=== PATIENT | male | born 1935 | race Caucasian/White ===

== ENCOUNTER 2021-02-01 08:24 | Inpatient (IN) | payer MEDICARE ==
[2021-01-26 09:23] LABS: BASOPHILS # (AUTO) 0.1 X10'3 (0-0.2); EOSINOPHILS # (AUTO) 0.4 X10'3 (0-0.9); EOSINOPHILS % (AUTO) 6.7 % (0-6); HEMOGLOBIN 14.9 g/dl (14.0-17.9); LYMPHOCYTES # (AUTO) 1.2 X10'3 (1.1-4.8); LYMPHOCYTES % (AUTO) 19.3 % (21-51); MEAN CORPUSCULAR HEMOGLOBIN 31.7 PG (27.0-31.0); MEAN CORPUSCULAR HGB CONC 33.9 g/dL (33.0-36.5); MEAN CORPUSCULAR VOLUME 93.4 FL (78-98); MEAN PLATELET VOLUME 8.2 FL (7.4-10.4); MONOCYTES % (AUTO) 14.9 % (2-12); NEUTROPHILS # (AUTO) 3.7 X10'3 (1.8-7.7); NEUTROPHILS % (AUTO) 58.1 % (42-75); PLATELET COUNT 221 X10'3 (140-440); RED BLOOD COUNT 4.71 X10'6 (4.70-6.10); RED CELL DISTRIBUTION WIDTH 13.3 % (11.5-14.5); WHITE BLOOD COUNT 6.4 X10'3 (4.5-11.0)
[2021-01-26 09:49] LABS: ALANINE AMINOTRANSFERASE 26 U/L (12-78); ALBUMIN 3.3 G/DL (3.4-5.0); ALBUMIN/GLOBULIN RATIO 0.9 (1.1-1.5); ALKALINE PHOSPHATASE 91 IU/L (46-116); ANION GAP 5 (8-16); ASPARTATE AMINO TRANSFERASE 26 U/L (10-37); BILIRUBIN,TOTAL 0.6 MG/DL (0.1-1.0); BLOOD UREA NITROGEN 17 MG/DL (7-18); CALCIUM 8.3 MG/DL (8.5-10.1); CHLORIDE 107 MMOL/L (99-107); CREATININE 1.31 MG/DL (0.60-1.10); GLUCOSE 94 MG/DL (70-104); POTASSIUM 4.9 MMOL/L (3.5-5.1); SODIUM 141 MMOL/L (135-145); TOTAL CARBON DIOXIDE 28.8 MMOL/L (24-32); TOTAL PROTEIN 6.9 G/DL (6.4-8.2); eGFR 52 ML/MIN
[2021-01-26 13:57] LABS: PARTIAL THROMBOPLASTIN TIME 29 SECONDS (22-32)
[~2021-02-01] VITALS: Ht 172.7 cm; Wt 67.8 kg
[2021-02-01] VITALS (12 sets, daily range): BP systolic 94–188; BP diastolic 42–101
--- NOTE | 2021-02-01 05:53 | NUR ---
Patient in room PCU 3018. I have received report from Zahra and had the opportunity to ask questions and assume patient care.
[~2021-02-01 08:24] MED LIST: LIDOcaine 2% (20 mg/ml) 5ml cardiac syringe ONE; MAGNESIUM SULFATE 4 MEQ/ML (5gm/10ml) injection ONE; NORepinephrine 1 mg/ml inj IV ONE; albumin (human) 25% 100 ML IV solution IV ONE; aminocaproic acid 250 MG/1 ML inj. ONE; heparin 10,000 units/1 ML INJ ONE; methylPREDNISolone sod succ 1000mg vial ONE; potassium Cl 2 mEq/ml inj IV ONE; sodium bicarbonate (8.4%) 1 mEq/ml syringe ONE
[2021-02-01] MEDS ORDERED: diphenhydrAMINE 25mg capsule PO PRN (08:50)
[2021-02-01] MEDS ORDERED: LORazepam 0.5 MG tablet PO PRN (08:50)
[2021-02-01] MEDS ORDERED: nitroGLYCERIN 0.4mg SUBLingual tab SL PRN (08:50)
[2021-02-01] MEDS ORDERED: ASPI-1265 PO (08:55)
[2021-02-01] MEDS ORDERED: MULT-1085 PO (08:55)
[2021-02-01] MEDS: normal saline 1,000 ML IV SCH (09:39)
[2021-02-01] MEDS ORDERED: LIDOcaine 1% (10mg/ml)w/preservative injection 20ml MDV ONE (10:37)
[2021-02-01] MEDS ORDERED: iohexol 350MG/ML 100ml bottle IV ONE (10:37)
[2021-02-01] MEDS ORDERED: iohexol 350 MG/ML 50ML vial IV ONE ×2 (10:37→11:13)
[2021-02-01] MEDS ORDERED: fentaNYL/PF 50MCG/1 ML 2ML syringe ONE (10:37)
[2021-02-01] MEDS ORDERED: midazolam 1 mg/ML 2ml injection ONE (10:37)
[2021-02-01] MEDS ORDERED: hydrALAZINE 20mg/ml inj. IV ONE (11:11)
[2021-02-01] MEDS ORDERED: nitroGLYCERIN-Tridil 50MG/D5W 250 ML IV ONE (11:11)
[2021-02-01] MEDS ORDERED: HYDROcodone/acetaminophen 10/325mg tab PO PRN (12:35)
[2021-02-01] MEDS: normal saline 1000ml 1,000 ML IV SCH ×2 (12:35→22:35)
[2021-02-01] MEDS ORDERED: HYDROcodone/acetaminophen 5mg/325mg tablet PO PRN (12:35)
[2021-02-01] MEDS ORDERED: ondansetron/PF 4mg/2ml inj IV PRN (12:35)
[2021-02-01] MEDS ORDERED: OXAZEpam 15mg capsule PO PRN (12:35)
[2021-02-01] MEDS ORDERED: acetaminophen 325mg tablet PO PRN (12:35)
[2021-02-01] MEDS ORDERED: proCHLORperazine 10 MG/2 ml inj IV PRN (12:35)
[2021-02-01] MEDS ORDERED: gabapentin 400mg capsule PO ONE (16:15)
[2021-02-01] MEDS ORDERED: MALTODEXTRIN/FRUCTOSE 0.68 KCAL/ML LIQUID 296ML BOTTLE PO ONE (16:15)
[2021-02-01] MEDS ORDERED: PERFLUTREN PROTEIN-A MICROSPHR (Optison) 0.22 MG/ML 3ML VIAL IV ONE (16:15)
[2021-02-01] MEDS ORDERED: ondansetron 4mg rapidly disintigrating tab PO PRN (16:15)
[2021-02-01] MEDS ORDERED: vancomycin/NS 1 GM ADD-VANTAGE 250 ML IV ONE (16:15)
[2021-02-01] MEDS ORDERED: MESSAGE TO NURSING PO ONE ×4 (16:15)
[2021-02-01] MEDS ORDERED: cefazolin/dext.iso 2gm/50ml 50 ML IV ONE (16:15)
--- NOTE | 2021-02-01 17:31 | NUR ---
Problems reprioritized. Patient report given, questions answered & plan of care reviewed with RYAN Gambino in Tele, pt will be transported to room 3018B.
--- NOTE | 2021-02-01 17:35 | NUR ---
Patient in room . I have received report from Laura Francis and had the opportunity to ask questions and awaiting pt arrival to unit..
--- NOTE | 2021-02-01 17:40 | NUR ---
VSS, pt's R groin dsg CDI, pedal pulses palpable, pt is in stable condition and in no distress at this time, pt's RN Immanuel at pt's bedside and transferred all pt's belongings to room #3018B. Pt's daughter at bedside also.
--- NOTE | 2021-02-01 17:45 | NUR ---
Pt arrived on unit, started post op vital signs. Problems reprioritized. Patient report given, questions answered & plan of care reviewed with Patricia.
[2021-02-01] MEDS: atorvastatin 10mg tablet PO SCH (20:08)
[2021-02-01] MEDS: metoprolol tartrate 12.5mg (1/2 tablet) PO SCH (20:08)
[2021-02-02] MEDS: normal saline 1,000 ML IV SCH ×3 (01:05→14:50)
[2021-02-02 01:13] LABS: CLARITY,URINE CLEAR (Clear); COLOR,URINE YELLOW (Yellow); GLUCOSE, URINE NEGATIVE (Neg); KETONES,URINE TRACE mg/dl (Neg); LEUKOCYTE ESTERASE ,URINE NEGATIVE (Neg); NITRITES, URINE NEGATIVE (Neg); OCCULT BLOOD,URINE NEGATIVE (Neg); PROTEIN,URINE NEGATIVE (Neg); UROBILINOGEN,URINE 0.2 E.U/dL (0.2-1.0)
[2021-02-02 01:16] LABS: UA COLLECTION TYPE VOIDED
[2021-02-02 02:00] VITALS: BP 122/55
[2021-02-02 06:56] LABS: HEMOGLOBIN A1C 5.1 % (4.5-6.2)
[2021-02-02 07:05] LABS: PARTIAL THROMBOPLASTIN TIME 29 SECONDS (22-32)
[2021-02-02 07:10] VITALS: BP 127/55
[2021-02-02] MEDS: metoprolol tartrate 12.5mg (1/2 tablet) PO SCH ×2 (07:22→21:04)
[2021-02-02 07:30] LABS: ALANINE AMINOTRANSFERASE 17 U/L (12-78); ALBUMIN 2.8 G/DL (3.4-5.0); ALKALINE PHOSPHATASE 79 IU/L (46-116); ANION GAP 10 (8-16); ASPARTATE AMINO TRANSFERASE 20 U/L (10-37); BILIRUBIN,TOTAL 0.6 MG/DL (0.1-1.0); BLOOD UREA NITROGEN 17 MG/DL (7-18); BUN/CREATININE RATIO 14.3 (5.4-32.0); CALCIUM 7.9 MG/DL (8.5-10.1); CHLORIDE 110 MMOL/L (99-107); CREATININE 1.19 MG/DL (0.60-1.10); GLUCOSE 92 MG/DL (70-104); POTASSIUM 4.3 MMOL/L (3.5-5.1); SODIUM 143 MMOL/L (135-145); TOTAL PROTEIN 5.7 G/DL (6.4-8.2); eGFR 58 ML/MIN
[2021-02-02] MEDS: normal saline 1000ml 1,000 ML IV SCH ×2 (08:35→18:35)
[2021-02-02] MEDS ORDERED: MESSAGE TO NURSING PO ONE (10:00)
[2021-02-02] MEDS ORDERED: insulin glargine (Lantus) pen - multi-dose SQ PRN (10:30)
[2021-02-02] MEDS ORDERED: dextrose 50%-water 50ml dispensing syringe IV PRN (10:30)
[2021-02-02] MEDS ORDERED: Insulin Reg/NS 100units/100mL 100 ML IV SCH (10:30)
[2021-02-02 11:00] VITALS: BP 138/72
[2021-02-02 11:46] LABS: ABG BASE EXCESS 0.1 mmol/L (-2.0-2.0); ABG OXYGEN SATURATION 95.7 % (94-97); ABG PCO2 (T) 36.8 mmHg (35.0-48.0); ABG PO2 (T) 73.7 mmHg (75.0-100.0); ALLEN'S TEST POSITIVE; FCOHb 0.7 % (0.0-3.9); FMetHb 0.2 % (0.0-1.5); FO2Hb 94.8 % (94-97); TOTAL HEMOGLOBIN 14.5 G/dl (14.0-18.0)
[2021-02-02 14:22] LABS: BASOPHILS % (AUTO) 0.5 % (0-1); EOSINOPHILS # (AUTO) 0.5 X10'3 (0-0.9); EOSINOPHILS % (AUTO) 5.7 % (0-6); HEMATOCRIT 42.2 % (42.0-52.0); HEMOGLOBIN 14.1 g/dl (14.0-17.9); LYMPHOCYTES # (AUTO) 1.3 X10'3 (1.1-4.8); LYMPHOCYTES % (AUTO) 15.9 % (21-51); MEAN CORPUSCULAR HEMOGLOBIN 31.7 PG (27.0-31.0); MEAN CORPUSCULAR HGB CONC 33.4 g/dL (33.0-36.5); MEAN PLATELET VOLUME 8.1 FL (7.4-10.4); MONOCYTES # (AUTO) 1.3 X10'3 (0-0.9); MONOCYTES % (AUTO) 16.1 % (2-12); NEUTROPHILS # (AUTO) 5.1 X10'3 (1.8-7.7); NEUTROPHILS % (AUTO) 61.8 % (42-75); PLATELET COUNT 215 X10'3 (140-440); RED BLOOD COUNT 4.45 X10'6 (4.70-6.10); RED CELL DISTRIBUTION WIDTH 13.5 % (11.5-14.5); WHITE BLOOD COUNT 8.2 X10'3 (4.5-11.0)
[2021-02-02 15:00] VITALS: BP 116/65
[2021-02-02 15:26] LABS: PLATELET ESTIMATE NORMAL; TOTAL CELLS COUNTED 100
[2021-02-02 18:00] VITALS: BP 153/76
--- NOTE | 2021-02-02 18:17 | NUR ---
Patient in room PCU 3018. I have received report from Bushra DAVIS and had the opportunity to ask questions and assume patient care.
[2021-02-02] MEDS ORDERED: ringers solution, lacted 1,000 ML IV ONE (18:25)
--- NOTE | 2021-02-02 18:32 | NUR ---
Problems reprioritized. Patient report given, questions answered & plan of care reviewed with Bing DAVIS.
[2021-02-02] MEDS ORDERED: metoprolol tartrate 12.5mg (1/2 tablet) PO SCH (20:00)
[2021-02-02] MEDS ORDERED: mupirocin 2% nasal ointment 1gm UD NS SCH (20:00)
[2021-02-02] MEDS ORDERED: sod chloride 0.9% 10ml flush syringe IV SCH (20:00)
[2021-02-02] MEDS: atorvastatin 10mg tablet PO SCH (21:05)
[2021-02-02 23:00] VITALS: BP_SYST 182; BP_SYST 199; BP_DIAS 90
[2021-02-03] VITALS (20 sets, daily range): BP systolic 98–172; BP diastolic 53–130
[2021-02-03] MEDS: normal saline 1,000 ML IV SCH (00:50)
[2021-02-03] MEDS: normal saline 1000ml 1,000 ML IV SCH (04:35)
[2021-02-03] MEDS ORDERED: MALTODEXTRIN/FRUCTOSE 0.68 KCAL/ML LIQUID 296ML BOTTLE PO ONE (05:00)
[2021-02-03] MEDS ORDERED: ceFAZolin 1000mg inj ONE (05:11)
[2021-02-03] MEDS: metoprolol tartrate 12.5mg (1/2 tablet) PO SCH (05:18)
[2021-02-03] MEDS ORDERED: gabapentin 400mg capsule PO ONE (05:30)
[2021-02-03] MEDS ORDERED: cefazolin/dext.iso 2gm/50ml 50 ML IV ONE (05:30)
[2021-02-03] MEDS ORDERED: mupirocin 2% nasal ointment 1gm UD NS ONE (05:30)
[2021-02-03] MEDS ORDERED: vancomycin/NS 1 GM ADD-VANTAGE 250 ML IV ONE (05:30)
[2021-02-03] MEDS ORDERED: LORazepam 2 mg/ml vial IV ONE (06:00)
[2021-02-03] MEDS ORDERED: famotidine 20mg tablet PO ONE (06:00)
--- NOTE | 2021-02-03 06:42 | NUR ---
Patient in room PCU 3018. I have received report from RYAN Smart and had the opportunity to ask questions and assume patient care.
--- NOTE | 2021-02-03 06:52 | NUR ---
OR came for pt.
[2021-02-03] MEDS ORDERED: isoflurane 100ml inhalation liquid IH ONE (06:55)
[2021-02-03] MEDS ORDERED: dextrose 50%-water 50ml dispensing syringe IV ONE (06:55)
[2021-02-03] MEDS ORDERED: atropine 0.1mg/ml 10ml syringe ONE (06:55)
[2021-02-03] MEDS ORDERED: nitroGLYCERIN in D5W 50mg/250ml (Tridil) infusion IV ONE (06:55)
[2021-02-03] MEDS ORDERED: SUFENTANIL CITRATE 50 MCG/ML 2ml ampule IV ONE (07:01)
[2021-02-03] MEDS ORDERED: LORazepam 2 mg/ml vial ONE (07:03)
[2021-02-03 07:08] LABS: BASOPHILS % (AUTO) 0.4 % (0-1); EOSINOPHILS # (AUTO) 0.5 X10'3 (0-0.9); EOSINOPHILS % (AUTO) 6.1 % (0-6); HEMOGLOBIN 14.6 g/dl (14.0-17.9); LYMPHOCYTES # (AUTO) 1.1 X10'3 (1.1-4.8); LYMPHOCYTES % (AUTO) 13.6 % (21-51); MEAN CORPUSCULAR HEMOGLOBIN 31.7 PG (27.0-31.0); MEAN CORPUSCULAR HGB CONC 33.9 g/dL (33.0-36.5); MEAN CORPUSCULAR VOLUME 93.4 FL (78-98); MEAN PLATELET VOLUME 8.1 FL (7.4-10.4); MONOCYTES # (AUTO) 0.9 X10'3 (0-0.9); MONOCYTES % (AUTO) 11.1 % (2-12); NEUTROPHILS # (AUTO) 5.5 X10'3 (1.8-7.7); NEUTROPHILS % (AUTO) 68.8 % (42-75); PLATELET COUNT 192 X10'3 (140-440); RED CELL DISTRIBUTION WIDTH 13.5 % (11.5-14.5); WHITE BLOOD COUNT 8.1 X10'3 (4.5-11.0)
--- NOTE | 2021-02-03 07:10 | NUR ---
Problems reprioritized. Patient report given, questions answered & plan of care reviewed with TRACEY DAVIS.
[2021-02-03] MEDS ORDERED: rocuronium 10mg/ml inj IV ONE ×2 (07:30→09:03)
[2021-02-03] MEDS ORDERED: LIDOcaine 2% (20mg/ml) 5ml vial ONE (07:31)
[2021-02-03] MEDS ORDERED: propofol inj 20 ML IV ONE (07:31)
[2021-02-03 07:40] LABS: ALBUMIN 2.8 G/DL (3.4-5.0); ANION GAP 9 (8-16); BLOOD UREA NITROGEN 17 MG/DL (7-18); BUN/CREATININE RATIO 13.7 (5.4-32.0); CHLORIDE 108 MMOL/L (99-107); CREATININE 1.24 MG/DL (0.60-1.10); GLUCOSE 199 MG/DL (70-104); SODIUM 141 MMOL/L (135-145); TOTAL CARBON DIOXIDE 24.5 MMOL/L (24-32); eGFR 55 ML/MIN
[2021-02-03 07:44] LABS: ABG BASE EXCESS -2.9 mmol/L (-2.0-2.0); ABG HCO3 21.6 mmol/L (22.0-26.0); ABG OXYGEN SATURATION 97.8 % (94-97); ABG PCO2 36.9 mmHg (35.0-48.0); ABG PO2 103.3 mmHg (75.0-100.0); CL (ABG) 106 mmol/L (98-110); FCOHb 0.5 % (0.0-3.9); FMetHb 0.3 % (0.0-1.5); GLUCOSE (ABG) 56 mg/dl (70-105); IONIZED CA (ABG) 1.18 mmol/L (1.10-1.43); K (ABG) 3.9 mmol/L (3.5-5.0); TOTAL HEMOGLOBIN 13.9 G/dl (14.0-18.0)
[2021-02-03] MEDS ORDERED: albumin (Human) 5% 250ml 250 ML IV ONE (07:44)
[2021-02-03] MEDS ORDERED: heparin 10,000 units/1 ML INJ IR ONE (07:56)
[2021-02-03] MEDS ORDERED: papaverine 30 mg/ml 2ml inj. IA ONE (07:57)
[2021-02-03 08:31] LABS: ABG BASE EXCESS -1.1 mmol/L (-2.0-2.0); ABG HCO3 22.8 mmol/L (22.0-26.0); ABG OXYGEN SATURATION 99.6 % (94-97); ABG PCO2 35.7 mmHg (35.0-48.0); ABG PO2 212.4 mmHg (75.0-100.0); CL (ABG) 107 mmol/L (98-110); FCOHb 0.8 % (0.0-3.9); FO2Hb 98.8 % (94-97); GLUCOSE (ABG) 72 mg/dl (70-105); TOTAL HEMOGLOBIN 13.3 G/dl (14.0-18.0)
[2021-02-03] MEDS ORDERED: albuterol 2.5 MG/3 ML nebule NEB PRN (08:40)
[2021-02-03 08:59] LABS: ABG HCO3 VENOUS 26.4 mmol/L (21.0-28.0); ABG PCO2 VENOUS 40.5 mmHg (41.0-54.0); CL (ABG) 103 mmol/L (98-110); FCOHb VENOUS 0.3 %; FMetHb VENOUS 0.3 % (0.0 - 0.5); FO2Hb VENOUS 89.4 %; GLUCOSE (ABG) 139 mg/dl (70-105); IONIZED CA (ABG) 1.17 mmol/L (1.10-1.43); K (ABG) 5.5 mmol/L (3.5-5.0); TOTAL HEMOGLOBIN 10.2 G/dl (14.0-18.0)
[2021-02-03 09:02] LABS: ABG BASE EXCESS 0.5 mmol/L (-2.0-2.0); ABG OXYGEN SATURATION 99.6 % (94-97); ABG PCO2 34.2 mmHg (35.0-48.0); ABG PO2 449.2 mmHg (75.0-100.0); CL (ABG) 104 mmol/L (98-110); FCOHb 0.1 % (0.0-3.9); FMetHb 0.3 % (0.0-1.5); FO2Hb 99.2 % (94-97); GLUCOSE (ABG) 130 mg/dl (70-105); IONIZED CA (ABG) 1.17 mmol/L (1.10-1.43); K (ABG) 5.4 mmol/L (3.5-5.0); TOTAL HEMOGLOBIN 10.2 G/dl (14.0-18.0)
[2021-02-03] MEDS ORDERED: calcium chloride 100 MG/1 ML inj IV ONE (09:02)
[2021-02-03 09:33] LABS: ABG HCO3 27.2 mmol/L (22.0-26.0); ABG OXYGEN SATURATION 99.3 % (94-97); ABG PCO2 39.9 mmHg (35.0-48.0); ABG PO2 300.1 mmHg (75.0-100.0); CL (ABG) 105 mmol/L (98-110); FCOHb 0.3 % (0.0-3.9); FMetHb 0.3 % (0.0-1.5); FO2Hb 98.7 % (94-97); GLUCOSE (ABG) 101 mg/dl (70-105); IONIZED CA (ABG) 1.12 mmol/L (1.10-1.43); K (ABG) 5.6 mmol/L (3.5-5.0); TOTAL HEMOGLOBIN 9.3 G/dl (14.0-18.0)
[2021-02-03 10:11] LABS: ABG BASE EXCESS 1.4 mmol/L (-2.0-2.0); ABG HCO3 23.9 mmol/L (22.0-26.0); ABG OXYGEN SATURATION 99.3 % (94-97); ABG PCO2 30.9 mmHg (35.0-48.0); ABG PO2 321.4 mmHg (75.0-100.0); CL (ABG) 106 mmol/L (98-110); FCOHb 0.3 % (0.0-3.9); FMetHb 0.3 % (0.0-1.5); FO2Hb 98.7 % (94-97); GLUCOSE (ABG) 113 mg/dl (70-105); IONIZED CA (ABG) 1.33 mmol/L (1.10-1.43); TOTAL HEMOGLOBIN 11.3 G/dl (14.0-18.0)
[2021-02-03 10:14] LABS: ACTIVATED CLOTTING TIME 131 SEC (101-148)
[2021-02-03] MEDS ORDERED: albumin (Human) 5% 250ml 500 ML IV ONE (10:46)
[2021-02-03] MEDS ORDERED: Insulin Reg/NS 100units/100mL 100 ML IV SCH (10:50)
[2021-02-03] MEDS ORDERED: insulin glargine (Lantus) pen - multi-dose SQ PRN (10:50)
[2021-02-03] MEDS ORDERED: acetaminophen 325mg tablet PO PRN ×2 (10:50)
[2021-02-03] MEDS ORDERED: bisacodyl 10mg suppository rectal RC PRN (10:50)
[2021-02-03] MEDS ORDERED: HYDROcodone/acetaminophen 10/325mg tab PO PRN ×2 (10:50)
[2021-02-03] MEDS ORDERED: Neutra Phos packet PO PRN (10:50)
[2021-02-03] MEDS ORDERED: DOPamine 400mg/D5W 250ml 250 ML IV PRN (10:50)
[2021-02-03] MEDS ORDERED: normal saline 250ml IV soln 250 ML IV PRN (10:50)
[2021-02-03] MEDS ORDERED: pantoprazole 40 MG vial IV ONE (10:50)
[2021-02-03] MEDS ORDERED: mineral oil 133ml enema RC PRN (10:50)
[2021-02-03] MEDS ORDERED: magnesium 4gm in 100ml NS 100 ML IV PRN (10:50)
[2021-02-03] MEDS ORDERED: potassium Cl 20 mEq SR tablet PO PRN (10:50)
[2021-02-03] MEDS ORDERED: magnesium citrate 296ml oral solution PO PRN (10:50)
[2021-02-03] MEDS ORDERED: sodium phosphate inj. 30 MMOL in dextrose 5%-water 250 ML IV PRN (10:50)
[2021-02-03] MEDS ORDERED: dextrose 50%-water 50ml dispensing syringe IV PRN (10:50)
[2021-02-03] MEDS ORDERED: niCARDipine-NS 40mg/200ml IVPB 200 ML IV PRN (10:50)
[2021-02-03] MEDS ORDERED: morphine 4 MG/ML inj SYRINge IV PRN ×2 (10:50)
[2021-02-03] MEDS ORDERED: metoclopramide 5 mg/ml inj IV PRN (10:50)
[2021-02-03] MEDS ORDERED: magnesium 2GM in 50ml NS 50 ML IV PRN (10:50)
[2021-02-03] MEDS ORDERED: magnesium hydroxide 30ml (MOM) UD suspension PO PRN (10:50)
[2021-02-03] MEDS ORDERED: potassium CL 10mEq/100ml bag 100 ML IV PRN (10:50)
[2021-02-03] MEDS ORDERED: potassium Cl 40MEQ/1/2NS 520ml 520 ML IV PRN (10:50)
[2021-02-03] MEDS ORDERED: nitroGLYCERIN-Tridil 50MG/D5W 250 ML IV PRN (10:50)
[2021-02-03] MEDS ORDERED: ondansetron/PF 4mg/2ml inj IV PRN (10:50)
[2021-02-03] MEDS ORDERED: sodium phosphate inj. 15 MMOL in dextrose 5%-water 250 ML IV PRN (10:50)
[2021-02-03] MEDS ORDERED: potassium Cl 40MEQ/250ML bag 250 ML IV PRN (10:50)
--- NOTE | 2021-02-03 11:00 | NUR ---
Received to room , accompanied by Dr. Bess, Dr. Meyer and surgical crew. See assessment records. Mera/PAline/CVPline and IVs noted in IV assessment records. All sites without redness or swelling. Vasoactive drugs infusing per [facility].
[2021-02-03 11:01] LABS: ABG BASE EXCESS 1.4 mmol/L (-2.0-2.0); ABG HCO3 24.7 mmol/L (22.0-26.0); ABG OXYGEN SATURATION 99.2 % (94-97); ABG PCO2 (T) 35.1 mmHg (35.0-48.0); ABG PO2 (T) 239.6 mmHg (75.0-100.0); FCOHb 0.2 % (0.0-3.9); FMetHb 0.3 % (0.0-1.5); FO2Hb 98.7 % (94-97); PEEP 5 cm H2O; RESPIRATORY RATE 12 b/min; TIDAL VOLUME 600 mL; TOTAL HEMOGLOBIN 13.5 G/dl (14.0-18.0)
--- NOTE | 2021-02-03 11:12 | NUR ---
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 Would benefit from written/verbal CABG ed once stable prior to discharge. Addendum: 02/03/21 at [address] Amended: Links added.
[2021-02-03 11:33] LABS: BASOPHILS % (AUTO) 0.2 % (0-1); EOSINOPHILS # (AUTO) 0.2 X10'3 (0-0.9); EOSINOPHILS % (AUTO) 1.1 % (0-6); HEMATOCRIT 37.6 % (42.0-52.0); HEMOGLOBIN 12.9 g/dl (14.0-17.9); LYMPHOCYTES # (AUTO) 0.7 X10'3 (1.1-4.8); MEAN CORPUSCULAR HEMOGLOBIN 31.8 PG (27.0-31.0); MEAN CORPUSCULAR HGB CONC 34.4 g/dL (33.0-36.5); MEAN CORPUSCULAR VOLUME 92.3 FL (78-98); MEAN PLATELET VOLUME 8.1 FL (7.4-10.4); MONOCYTES # (AUTO) 0.7 X10'3 (0-0.9); MONOCYTES % (AUTO) 4.5 % (2-12); NEUTROPHILS # (AUTO) 15.1 X10'3 (1.8-7.7); NEUTROPHILS % (AUTO) 90.2 % (42-75); PLATELET COUNT 150 X10'3 (140-440); RED BLOOD COUNT 4.08 X10'6 (4.70-6.10); RED CELL DISTRIBUTION WIDTH 13.5 % (11.5-14.5); WHITE BLOOD COUNT 16.7 X10'3 (4.5-11.0)
[2021-02-03 11:39] LABS: PARTIAL THROMBOPLASTIN TIME 29 SECONDS (22-32)
[2021-02-03 11:42] LABS: BILIRUBIN,TOTAL 0.8 MG/DL (0.1-1.0); BLOOD UREA NITROGEN 15 MG/DL (7-18); BUN/CREATININE RATIO 13.2 (5.4-32.0); CHLORIDE 112 MMOL/L (99-107); CREATININE 1.14 MG/DL (0.60-1.10); GLUCOSE 133 MG/DL (70-104); PHOSPHORUS 1.8 MG/DL (2.3-4.5); POTASSIUM 4.4 MMOL/L (3.5-5.1); SODIUM 143 MMOL/L (135-145); eGFR 61 ML/MIN
[2021-02-03] MEDS: sodium chloride 0.45% 1,000 ML IV SCH (11:54)
[2021-02-03 11:59] LABS: ALANINE AMINOTRANSFERASE 12 U/L (12-78); ALBUMIN 2.8 G/DL (3.4-5.0); ALBUMIN/GLOBULIN RATIO 1.3 (1.1-1.5); ALKALINE PHOSPHATASE 58 IU/L (46-116); ANION GAP 6 (8-16); ASPARTATE AMINO TRANSFERASE 24 U/L (10-37); MAGNESIUM 2.6 MG/DL (1.5-2.4); TOTAL CARBON DIOXIDE 25.3 MMOL/L (24-32)
--- NOTE | 2021-02-03 12:04 | NUR ---
All personal belongings were brought down to ICU room 2040.
[2021-02-03] MEDS: Insulin Reg/NS 100units/100mL 100 ML IV SCH (12:12)
[2021-02-03] MEDS: albumin (Human) 5% 250ml 250 ML IV PRN ×3 (12:44→15:16)
[2021-02-03] MEDS: gabapentin 300mg capsule PO SCH ×2 (13:51→20:53)
[2021-02-03 16:52] LABS: BASOPHILS % (AUTO) 0 % (0-1); EOSINOPHILS % (AUTO) 0.1 % (0-6); HEMATOCRIT 33.9 % (42.0-52.0); HEMOGLOBIN 11.4 g/dl (14.0-17.9); LYMPHOCYTES # (AUTO) 0.3 X10'3 (1.1-4.8); LYMPHOCYTES % (AUTO) 2.1 % (21-51); MEAN CORPUSCULAR HEMOGLOBIN 31.8 PG (27.0-31.0); MEAN CORPUSCULAR HGB CONC 33.6 g/dL (33.0-36.5); MEAN CORPUSCULAR VOLUME 94.7 FL (78-98); MEAN PLATELET VOLUME 8.3 FL (7.4-10.4); MONOCYTES # (AUTO) 0.5 X10'3 (0-0.9); MONOCYTES % (AUTO) 4.1 % (2-12); NEUTROPHILS # (AUTO) 12.5 X10'3 (1.8-7.7); NEUTROPHILS % (AUTO) 93.7 % (42-75); PLATELET COUNT 119 X10'3 (140-440); RED BLOOD COUNT 3.58 X10'6 (4.70-6.10); RED CELL DISTRIBUTION WIDTH 13.4 % (11.5-14.5); WHITE BLOOD COUNT 13.3 X10'3 (4.5-11.0)
[2021-02-03] MEDS: ceFAZolin/D5W- 1GM premix 50 ML IV SCH (16:55)
[2021-02-03 17:04] LABS: ALBUMIN 3.5 G/DL (3.4-5.0); ANION GAP 8 (8-16); BLOOD UREA NITROGEN 14 MG/DL (7-18); BUN/CREATININE RATIO 12.1 (5.4-32.0); CALCIUM 7.8 MG/DL (8.5-10.1); CHLORIDE 113 MMOL/L (99-107); CREATININE 1.16 MG/DL (0.60-1.10); GLUCOSE 110 MG/DL (70-104); PHOSPHORUS 2.3 MG/DL (2.3-4.5); SODIUM 145 MMOL/L (135-145); TOTAL CARBON DIOXIDE 23.7 MMOL/L (24-32); eGFR 60 ML/MIN
--- NOTE | 2021-02-03 17:48 | NUR ---
Patient remains very somnolent. Grimaces to physical stimulation but no movement of extremities. No narcotics given since surgery. Patient's HR decreased to low 50's. Dopamine started for rate control. Filling pressures continually low. Given Albumin & Normal Saline. Large UO. H/H stable. CT drainage serosanguinous.
--- NOTE | 2021-02-03 18:16 | NUR ---
Problems reprioritized. Patient report given, questions answered & plan of care reviewed with Yvette DAVIS.
--- NOTE | 2021-02-03 18:20 | NUR ---
Patient in room ICU 2040. I have received report from Katie DAVIS and had the opportunity to ask questions and assume patient care.
--- NOTE | 2021-02-03 19:25 | NUR ---
Pt is beginning to wake up and follow commands, still very sleepy but moves all four extremities, nods no to pain, tolerating vent well. Will continue to monitor
[2021-02-03] MEDS: potassium Cl 20mEq/100mL bag 100 ML IV PRN ×2 (19:31→20:51)
[2021-02-03] MEDS: mupirocin 2% nasal ointment 1gm UD NS SCH (20:52)
[2021-02-03] MEDS: sennosides/docusate sodium tablet PO SCH (20:52)
[2021-02-03] MEDS: vancomycin/NS 1 GM ADD-VANTAGE 250 ML IV SCH (20:52)
[2021-02-03] MEDS: atorvastatin 10mg tablet PO SCH (20:53)
[2021-02-04] VITALS (24 sets, daily range): BP systolic 106–137; BP diastolic 41–74
[2021-02-04] MEDS: ceFAZolin/D5W- 1GM premix 50 ML IV SCH ×3 (00:13→15:24)
[2021-02-04 00:46] LABS: ABG BASE EXCESS -3.2 mmol/L (-2.0-2.0); ABG HCO3 21.4 mmol/L (22.0-26.0); ABG OXYGEN SATURATION 95.6 % (94-97); ABG PCO2 (T) 37.5 mmHg (35.0-48.0); ABG PO2 (T) 83.1 mmHg (75.0-100.0); FCOHb 0.3 % (0.0-3.9); FMetHb 0.3 % (0.0-1.5); PATIENT TEMPERATURE 37.3; TOTAL HEMOGLOBIN 11.9 G/dl (14.0-18.0)
--- NOTE | 2021-02-04 01:37 | NUR ---
pt extubated to 4L nasal cannula and tolerating it well. No complaints of pain or discomfort at this time.
[2021-02-04 03:36] LABS: BASOPHILS # (AUTO) 0.1 X10'3 (0-0.2); BASOPHILS % (AUTO) 0.6 % (0-1); EOSINOPHILS % (AUTO) 0 % (0-6); HEMOGLOBIN 11.4 g/dl (14.0-17.9); LYMPHOCYTES # (AUTO) 0.5 X10'3 (1.1-4.8); LYMPHOCYTES % (AUTO) 2.6 % (21-51); MEAN CORPUSCULAR HGB CONC 33.5 g/dL (33.0-36.5); MEAN CORPUSCULAR VOLUME 95.5 FL (78-98); MONOCYTES # (AUTO) 1.1 X10'3 (0-0.9); MONOCYTES % (AUTO) 6.5 % (2-12); NEUTROPHILS # (AUTO) 15.8 X10'3 (1.8-7.7); NEUTROPHILS % (AUTO) 90.3 % (42-75); PLATELET COUNT 136 X10'3 (140-440); RED BLOOD COUNT 3.57 X10'6 (4.70-6.10); RED CELL DISTRIBUTION WIDTH 13.5 % (11.5-14.5); WHITE BLOOD COUNT 17.5 X10'3 (4.5-11.0)
[2021-02-04 03:50] LABS: PARTIAL THROMBOPLASTIN TIME 29 SECONDS (22-32)
[2021-02-04 03:52] LABS: ALANINE AMINOTRANSFERASE 21 U/L (12-78); ALBUMIN 3.3 G/DL (3.4-5.0); ALBUMIN/GLOBULIN RATIO 1.5 (1.1-1.5); ALKALINE PHOSPHATASE 45 IU/L (46-116); ANION GAP 9 (8-16); ASPARTATE AMINO TRANSFERASE 35 U/L (10-37); BLOOD UREA NITROGEN 16 MG/DL (7-18); BUN/CREATININE RATIO 13.4 (5.4-32.0); CALCIUM 7.8 MG/DL (8.5-10.1); CHLORIDE 111 MMOL/L (99-107); CREATININE 1.19 MG/DL (0.60-1.10); GLUCOSE 120 MG/DL (70-104); MAGNESIUM 2.5 MG/DL (1.5-2.4); PHOSPHORUS 3.6 MG/DL (2.3-4.5); POTASSIUM 4.6 MMOL/L (3.5-5.1); SODIUM 143 MMOL/L (135-145); TOTAL CARBON DIOXIDE 22.8 MMOL/L (24-32); TOTAL PROTEIN 5.5 G/DL (6.4-8.2); eGFR 58 ML/MIN
[2021-02-04 04:08] LABS: BILIRUBIN,TOTAL 5.5 MG/DL (0.1-1.0)
--- NOTE | 2021-02-04 06:44 | NUR ---
Problems reprioritized. Patient report given, questions answered & plan of care reviewed with Micaela DAVIS.
--- NOTE | 2021-02-04 06:47 | NUR ---
Patient in room ICU 2040. I have received report from Yvette DAVIS and had the opportunity to ask questions and assume patient care.
[2021-02-04] MEDS ORDERED: aspirin 325mg tablet, delayed-release (Ecotrin) PO SCH (08:00)
[2021-02-04] MEDS ORDERED: metoprolol tartrate 12.5mg (1/2 tablet) PO SCH (08:00)
--- NOTE | 2021-02-04 08:00 | NUR ---
Spoke with daughter Brittany over the phone and gave update on pts condition.
[2021-02-04] MEDS: vancomycin/NS 1 GM ADD-VANTAGE 250 ML IV SCH ×2 (08:42→21:15)
[2021-02-04] MEDS: gabapentin 300mg capsule PO SCH ×3 (08:43→21:16)
[2021-02-04] MEDS: sennosides/docusate sodium tablet PO SCH ×2 (08:43→21:15)
[2021-02-04] MEDS: mupirocin 2% nasal ointment 1gm UD NS SCH ×2 (08:43→21:15)
--- NOTE | 2021-02-04 12:42 | NUR ---
Called Dr. Bess regarding HR dropping to 40s and rhythm irregular, p waves present but not always, PACs are frequent, looks like pt is trying to go into afib. Pt is asymptomatic, pt states he feels fine, is A&Ox4 and awake. Also informed MD that urine output has been low 20-[address] Bess stated to monitor closely and call him if anything changes. No new orders at this time.
--- NOTE | 2021-02-04 13:51 | NUR ---
Called Dr. Bess regarding pt HR 30s-40s, did EKG-showed ventricular bigeminy, and accelerated junctional rhythm. Pt still asymptomatic, sitting up in bed watching a movie, pt states he feels fine. MD ordered to DC metoprolol and continue to monitor pt.
[2021-02-04] MEDS: Insulin Reg/NS 100units/100mL 100 ML IV SCH (14:50)
--- NOTE | 2021-02-04 18:29 | NUR ---
Problems reprioritized. Patient report given, questions answered & plan of care reviewed with Yvette DAVIS.
[2021-02-04 19:28] LABS: MAGNESIUM 2.4 MG/DL (1.5-2.4); PHOSPHORUS 4.4 MG/DL (2.3-4.5); POTASSIUM 4.9 MMOL/L (3.5-5.1)
[2021-02-04] MEDS: atorvastatin 10mg tablet PO SCH (21:16)
[2021-02-05] VITALS (23 sets, daily range): BP systolic 103–145; BP diastolic 51–80
[2021-02-05] MEDS: ceFAZolin/D5W- 1GM premix 50 ML IV SCH (00:03)
[2021-02-05 05:11] LABS: BASOPHILS % (AUTO) 0.1 % (0-1); EOSINOPHILS % (AUTO) 0.1 % (0-6); HEMATOCRIT 31.5 % (42.0-52.0); HEMOGLOBIN 10.3 g/dl (14.0-17.9); LYMPHOCYTES # (AUTO) 0.9 X10'3 (1.1-4.8); LYMPHOCYTES % (AUTO) 5.1 % (21-51); MEAN CORPUSCULAR HEMOGLOBIN 31.3 PG (27.0-31.0); MEAN CORPUSCULAR HGB CONC 32.6 g/dL (33.0-36.5); MEAN CORPUSCULAR VOLUME 96.1 FL (78-98); MEAN PLATELET VOLUME 9.7 FL (7.4-10.4); MONOCYTES # (AUTO) 2.6 X10'3 (0-0.9); MONOCYTES % (AUTO) 14.3 % (2-12); NEUTROPHILS # (AUTO) 14.7 X10'3 (1.8-7.7); NEUTROPHILS % (AUTO) 80.4 % (42-75); PLATELET COUNT 116 X10'3 (140-440); RED BLOOD COUNT 3.27 X10'6 (4.70-6.10); RED CELL DISTRIBUTION WIDTH 13.5 % (11.5-14.5); WHITE BLOOD COUNT 18.2 X10'3 (4.5-11.0)
[2021-02-05 05:19] LABS: ALBUMIN 2.8 G/DL (3.4-5.0); ANION GAP 8 (8-16); BLOOD UREA NITROGEN 26 MG/DL (7-18); BUN/CREATININE RATIO 21.7 (5.4-32.0); CALCIUM 7.7 MG/DL (8.5-10.1); CHLORIDE 109 MMOL/L (99-107); GLUCOSE 120 MG/DL (70-104); MAGNESIUM 2.8 MG/DL (1.5-2.4); PHOSPHORUS 3.4 MG/DL (2.3-4.5); POTASSIUM 4.8 MMOL/L (3.5-5.1); SODIUM 141 MMOL/L (135-145); TOTAL CARBON DIOXIDE 24.3 MMOL/L (24-32); eGFR 57 ML/MIN
--- NOTE | 2021-02-05 06:34 | NUR ---
Patient in room ICU 2040. I have received report from Yvette DAVIS and had the opportunity to ask questions and assume patient care.
[2021-02-05] MEDS: sennosides/docusate sodium tablet PO SCH ×2 (08:08→20:00)
[2021-02-05] MEDS: pantoprazole 40mg Tablet.DR PO SCH (08:09)
[2021-02-05] MEDS: aspirin 81mg tab.chew PO SCH (08:09)
[2021-02-05] MEDS: mupirocin 2% nasal ointment 1gm UD NS SCH (08:09)
[2021-02-05] MEDS: gabapentin 300mg capsule PO SCH (08:09)
[2021-02-05 08:50] LABS: TOTAL CELLS COUNTED 100
[2021-02-05 08:51] LABS: PLATELET ESTIMATE NORMAL
[2021-02-05] MEDS ORDERED: furosemide 40mg/4ml inj IV ONE (10:25)
[2021-02-05] MEDS: sodium chloride 0.45% 1,000 ML IV SCH (10:50)
--- NOTE | 2021-02-05 16:20 | NUR ---
Informed Gerald MANTILLA about temp of 38.6, Tylenol given. Gerald stated to encourage more use of IS and to have pt get up, monitor vitals.
--- NOTE | 2021-02-05 18:22 | NUR ---
Problems reprioritized. Patient report given, questions answered & plan of care reviewed with Juani DAVIS.
[2021-02-05] MEDS: atorvastatin 10mg tablet PO SCH (22:06)
[2021-02-06] VITALS (23 sets, daily range): BP systolic 77–145; BP diastolic 49–81
[2021-02-06] MEDS: Insulin Reg/NS 100units/100mL 100 ML IV SCH (00:10)
--- NOTE | 2021-02-06 06:25 | NUR ---
Patient in room ICU 2040. I have received report from KARAN RN and had the opportunity to ask questions and assume patient care.
[2021-02-06] MEDS ORDERED: potassium CL 10mEq/100ml bag 100 ML IV PRN (06:50)
[2021-02-06] MEDS ORDERED: potassium Cl 40MEQ/250ML bag 250 ML IV PRN (06:50)
[2021-02-06] MEDS ORDERED: potassium Cl 20mEq/100mL bag 100 ML IV PRN (06:50)
[2021-02-06] MEDS ORDERED: potassium Cl 40MEQ/1/2NS 520ml 520 ML IV PRN (06:50)
[2021-02-06] MEDS ORDERED: magnesium 2GM in 50ml NS 50 ML IV PRN (06:50)
[2021-02-06] MEDS ORDERED: potassium Cl 20 mEq SR tablet PO PRN (06:50)
[2021-02-06] MEDS ORDERED: magnesium 4gm in 100ml NS 100 ML IV PRN (06:50)
[2021-02-06] MEDS ORDERED: amiodarone 150mg/dext, iso-os 100 ML IV ONE ×3 (07:10→10:30)
[2021-02-06 07:36] LABS: BASOPHILS % (AUTO) 0.1 % (0-1); EOSINOPHILS # (AUTO) 0.1 X10'3 (0-0.9); EOSINOPHILS % (AUTO) 0.8 % (0-6); HEMATOCRIT 31.2 % (42.0-52.0); HEMOGLOBIN 10.6 g/dl (14.0-17.9); LYMPHOCYTES # (AUTO) 0.9 X10'3 (1.1-4.8); LYMPHOCYTES % (AUTO) 6.6 % (21-51); MEAN CORPUSCULAR HEMOGLOBIN 31.9 PG (27.0-31.0); MEAN CORPUSCULAR HGB CONC 33.8 g/dL (33.0-36.5); MEAN CORPUSCULAR VOLUME 94.4 FL (78-98); MEAN PLATELET VOLUME 9.4 FL (7.4-10.4); MONOCYTES # (AUTO) 1.9 X10'3 (0-0.9); NEUTROPHILS # (AUTO) 10.1 X10'3 (1.8-7.7); NEUTROPHILS % (AUTO) 77.5 % (42-75); PLATELET COUNT 130 X10'3 (140-440); RED BLOOD COUNT 3.31 X10'6 (4.70-6.10); RED CELL DISTRIBUTION WIDTH 13.6 % (11.5-14.5)
[2021-02-06 07:45] LABS: ALBUMIN 2.6 G/DL (3.4-5.0); ANION GAP 6 (8-16); BLOOD UREA NITROGEN 26 MG/DL (7-18); BUN/CREATININE RATIO 23.6 (5.4-32.0); CALCIUM 7.8 MG/DL (8.5-10.1); CHLORIDE 109 MMOL/L (99-107); GLUCOSE 102 MG/DL (70-104); MAGNESIUM 2.2 MG/DL (1.5-2.4); PHOSPHORUS 2.2 MG/DL (2.3-4.5); POTASSIUM 4.2 MMOL/L (3.5-5.1); SODIUM 141 MMOL/L (135-145); TOTAL CARBON DIOXIDE 26.3 MMOL/L (24-32); eGFR 63 ML/MIN
[2021-02-06] MEDS: sennosides/docusate sodium tablet PO SCH ×2 (08:00→20:32)
[2021-02-06] MEDS: metoprolol tartrate 12.5mg (1/2 tablet) PO SCH ×3 (08:00→20:33)
[2021-02-06] MEDS: potassium Cl 20 mEq SR tablet PO SCH ×2 (08:00→20:33)
[2021-02-06] MEDS: magnesium Cl slow-release 64mg tablet PO SCH ×2 (08:00→20:33)
[2021-02-06] MEDS: aspirin 81mg tab.chew PO SCH (08:06)
[2021-02-06] MEDS: pantoprazole 40mg Tablet.DR PO SCH (08:06)
[2021-02-06] MEDS: amiodarone/D5 360MG/200ML BAG 200 ML IV SCH ×3 (08:42→20:20)
[2021-02-06 10:24] LABS: ACT @ 1.70 U 272 SEC (193-297); ACT @ 2.84 U 394 SEC (260-420); BASELINE ACT 134 SEC (101-148); PATIENT WEIGHT 67.0k KG
--- NOTE | 2021-02-06 12:25 | NUR ---
Initial: Pt admit s/p CABGx3 PO 50-75% avg NCS diet post-op partially meeting needs. Would benefit from Ry shake BIDLD and ensure high protein WB for wound healing needs; ANNALEE notified. LBM 02/05 receiving routine senna. Pt currently in afib per RN during rounds. Will monitor for more appropriate time for CABG ed prior to discharge. Rec: 1. advance diet as medically indicated to regular; encourage PO 2. Ry shake BIDLD and ensure high protein ONS WB; pending verification in EMR 3. routine bowel care 4. weekly wts Addendum: 02/06/21 at [address] Amended: Links added.
[2021-02-06] MEDS: JUVEN Shake w/Arg/Glut/Ca2+Bmb (Juven 19.3gm) pkt 240ml PO SCH ×2 (12:30→17:30)
[2021-02-06] MEDS: atorvastatin 10mg tablet PO SCH (20:33)
[2021-02-07] VITALS (24 sets, daily range): BP systolic 114–165; BP diastolic 68–89
[2021-02-07] MEDS: amiodarone/D5 360MG/200ML BAG 200 ML IV SCH ×3 (03:02→13:42)
[2021-02-07 03:56] LABS: BASOPHILS % (AUTO) 0.2 % (0-1); EOSINOPHILS # (AUTO) 0.4 X10'3 (0-0.9); EOSINOPHILS % (AUTO) 3.1 % (0-6); HEMATOCRIT 30.7 % (42.0-52.0); HEMOGLOBIN 10.2 g/dl (14.0-17.9); LYMPHOCYTES # (AUTO) 1.2 X10'3 (1.1-4.8); LYMPHOCYTES % (AUTO) 10.1 % (21-51); MEAN CORPUSCULAR HEMOGLOBIN 31.7 PG (27.0-31.0); MEAN CORPUSCULAR HGB CONC 33.3 g/dL (33.0-36.5); MEAN PLATELET VOLUME 9.4 FL (7.4-10.4); MONOCYTES # (AUTO) 1.9 X10'3 (0-0.9); MONOCYTES % (AUTO) 15.5 % (2-12); NEUTROPHILS # (AUTO) 8.6 X10'3 (1.8-7.7); NEUTROPHILS % (AUTO) 71.1 % (42-75); PLATELET COUNT 160 X10'3 (140-440); RED BLOOD COUNT 3.23 X10'6 (4.70-6.10); RED CELL DISTRIBUTION WIDTH 13.4 % (11.5-14.5); WHITE BLOOD COUNT 12.1 X10'3 (4.5-11.0)
[2021-02-07 04:03] LABS: ALBUMIN 2.4 G/DL (3.4-5.0); ANION GAP 9 (8-16); BLOOD UREA NITROGEN 29 MG/DL (7-18); BUN/CREATININE RATIO 21.2 (5.4-32.0); CALCIUM 7.7 MG/DL (8.5-10.1); CHLORIDE 108 MMOL/L (99-107); CREATININE 1.37 MG/DL (0.60-1.10); GLUCOSE 113 MG/DL (70-104); POTASSIUM 4.3 MMOL/L (3.5-5.1); SODIUM 141 MMOL/L (135-145); TOTAL CARBON DIOXIDE 24.5 MMOL/L (24-32); eGFR 49 ML/MIN
--- NOTE | 2021-02-07 06:29 | NUR ---
Problems reprioritized. Patient report given, questions answered & plan of care reviewed with RYAN Faulkner.
--- NOTE | 2021-02-07 06:32 | NUR ---
Patient in room ICU 2040. I have received report from Tomasa DAVIS and had the opportunity to ask questions and assume patient care.
[2021-02-07] MEDS: lactose-reduced food (Ensure High Protein) 237ml bottle PO SCH (07:30)
[2021-02-07] MEDS ORDERED: metoprolol tartrate 12.5mg (1/2 tablet) PO SCH (08:00)
[2021-02-07] MEDS: potassium Cl 20 mEq SR tablet PO SCH ×2 (08:24→20:00)
[2021-02-07] MEDS: aspirin 81mg tab.chew PO SCH (08:24)
[2021-02-07] MEDS: magnesium Cl slow-release 64mg tablet PO SCH ×2 (08:24→20:00)
[2021-02-07] MEDS: pantoprazole 40mg Tablet.DR PO SCH (08:24)
[2021-02-07] MEDS: amiodarone 200mg tablet PO SCH ×3 (08:25→20:25)
[2021-02-07] MEDS: metoprolol tartrate 25mg tablet PO SCH ×2 (08:25→20:26)
[2021-02-07] MEDS: sennosides/docusate sodium tablet PO SCH ×2 (08:27→20:27)
--- NOTE | 2021-02-07 11:47 | NUR ---
F/u 02/06: Pt seen by JESSIE for written/verbal CABG ed w/ RD contact information provided. RD encouraged pt to contact dietitian's office if further questions/concerns. Pt prefers strawberry Ry shakes BIDLD and yogurt TIDWM w/ x2 WL; dietary notified of preferences. ONS to start today WL following verification in EMR. Will monitor for PO/ONS acceptance and additional protein needs post-op. Rec: 1. advance diet as medically indicated to regular; encourage PO 2. strawberry ry shake BIDLD and ensure high protein ONS WB 3. routine bowel care 4. weekly wts Addendum: 02/07/21 at [address] Amended: Links added.
[2021-02-07] MEDS: JUVEN Shake w/Arg/Glut/Ca2+Bmb (Juven 19.3gm) pkt 240ml PO SCH ×2 (12:31→17:30)
--- NOTE | 2021-02-07 18:12 | NUR ---
Problems reprioritized. Patient report given, questions answered & plan of care reviewed with Deepak DAVIS.
[2021-02-07] MEDS: atorvastatin 10mg tablet PO SCH (20:26)
[2021-02-08] VITALS (11 sets, daily range): BP systolic 115–143; BP diastolic 66–82
[2021-02-08 06:00] LABS: BASOPHILS # (AUTO) 0.1 X10'3 (0-0.2); BASOPHILS % (AUTO) 0.5 % (0-1); EOSINOPHILS # (AUTO) 0.4 X10'3 (0-0.9); EOSINOPHILS % (AUTO) 3.9 % (0-6); HEMATOCRIT 32.5 % (42.0-52.0); HEMOGLOBIN 10.9 g/dl (14.0-17.9); LYMPHOCYTES % (AUTO) 8.6 % (21-51); MEAN CORPUSCULAR HEMOGLOBIN 31.5 PG (27.0-31.0); MEAN CORPUSCULAR HGB CONC 33.5 g/dL (33.0-36.5); MEAN PLATELET VOLUME 8.4 FL (7.4-10.4); MONOCYTES # (AUTO) 1.6 X10'3 (0-0.9); MONOCYTES % (AUTO) 14.2 % (2-12); NEUTROPHILS # (AUTO) 8.2 X10'3 (1.8-7.7); NEUTROPHILS % (AUTO) 72.8 % (42-75); PLATELET COUNT 238 X10'3 (140-440); RED BLOOD COUNT 3.45 X10'6 (4.70-6.10); RED CELL DISTRIBUTION WIDTH 13.4 % (11.5-14.5); WHITE BLOOD COUNT 11.2 X10'3 (4.5-11.0)
[2021-02-08 06:12] LABS: ALBUMIN 2.6 G/DL (3.4-5.0); ANION GAP 4 (8-16); BLOOD UREA NITROGEN 28 MG/DL (7-18); BUN/CREATININE RATIO 20.9 (5.4-32.0); CALCIUM 8.6 MG/DL (8.5-10.1); CHLORIDE 108 MMOL/L (99-107); CREATININE 1.34 MG/DL (0.60-1.10); GLUCOSE 109 MG/DL (70-104); MAGNESIUM 2.2 MG/DL (1.5-2.4); POTASSIUM 4.9 MMOL/L (3.5-5.1); SODIUM 139 MMOL/L (135-145); TOTAL CARBON DIOXIDE 26.9 MMOL/L (24-32); eGFR 51 ML/MIN
--- NOTE | 2021-02-08 06:27 | NUR ---
Problems reprioritized. Patient report given, questions answered & plan of care reviewed with Nadia WEEMS.
--- NOTE | 2021-02-08 06:30 | NUR ---
Patient in room ICU 2040. I have received report from Chirag DAVIS and had the opportunity to ask questions and assume patient care.
[2021-02-08] MEDS: lactose-reduced food (Ensure High Protein) 237ml bottle PO SCH (08:06)
[2021-02-08] MEDS: pantoprazole 40mg Tablet.DR PO SCH (08:07)
[2021-02-08] MEDS: sennosides/docusate sodium tablet PO SCH (08:08)
[2021-02-08] MEDS: magnesium Cl slow-release 64mg tablet PO SCH (08:08)
[2021-02-08] MEDS: aspirin 81mg tab.chew PO SCH (08:08)
[2021-02-08] MEDS: amiodarone 200mg tablet PO SCH (08:09)
[2021-02-08] MEDS: potassium Cl 20 mEq SR tablet PO SCH (08:09)
[2021-02-08] MEDS: metoprolol tartrate 25mg tablet PO SCH (08:09)
[2021-02-08] MEDS ORDERED: ATOR10TA PO (08:46)
[2021-02-08] MEDS ORDERED: LOP25T PO (08:46)
[2021-02-08] MEDS ORDERED: HYDR-3972 PO (08:46)
[2021-02-08] MEDS ORDERED: AMIO200T67 PO (08:46)
--- NOTE | 2021-02-08 09:51 | NUR ---
patient stable and comfortable at discharge. Removed cardiac monitory leads and PIV with cannula intact. Gathered all patient belongings and gave to patient. Patient will picker tender helper new medication at his pharmacy on the way home. Gathered and discussed all patient discharge information and discharge education with patient. Patient was able ri get questions answered and was able to verbalize back all discharge information and discharge education. Also discussed patient discharge education and discharge information over the phone with daughter. Patient is ready for discharge and we are currently waiting for daughter to come in private care to drive patient home. Addendum: 02/08/21 at 1103 by Wilber Steven RN Patient wheeled out to lobby in wheelchair by staff member at 1100, with all belongings, discharge information, and discharge education. Patient left hospital in private care with Family member.
--- NOTE | 2021-02-08 11:00 | NUR ---
Patient wheeled out to lobby in wheelchair by staff member, with all belongings, discharge information, and discharge education. Patient left hospital in private care with Family member.
== END 2021-02-08 11:00 | disposition home or self-care (01) | DRG 233 ==
LOC: SSTAY O 08:24 → UNDOADMIN 19:48 → PCU 3S 19:48 → ICU 2S 02-03 09:27
PROVIDERS: ADMIT Internal Medicine Cardiovascular Disease; ATTEND Thoracic Surgery (Cardiothoracic Vascular Surgery)
PROC: 4A023N7 Measurement of Cardiac Sampling and Pressure, Left Heart, Percutaneous Approach (ICD-10-PCS; 2021-02-01)
PROC: B2111ZZ Fluoroscopy of Multiple Coronary Arteries using Low Osmolar Contrast (ICD-10-PCS; 2021-02-01)
PROC: B3101ZZ Fluoroscopy of Thoracic Aorta using Low Osmolar Contrast (ICD-10-PCS; 2021-02-01)
PROC: 021109W Bypass Coronary Artery, Two Arteries from Aorta with Autologous Venous Tissue, Open Approach (ICD-10-PCS; 2021-02-03)
PROC: 06BQ4ZZ Excision of Left Saphenous Vein, Percutaneous Endoscopic Approach (ICD-10-PCS; 2021-02-03)
PROC: 5A1221Z Performance of Cardiac Output, Continuous (ICD-10-PCS; 2021-02-03)
PROC: B24BZZ4 Ultrasonography of Heart with Aorta, Transesophageal (ICD-10-PCS; 2021-02-03)
PROC: 02100Z9 Bypass Coronary Artery, One Artery from Left Internal Mammary, Open Approach (ICD-10-PCS; principal; 2021-02-03 06:55)
DX: I25.10 Atherosclerotic heart disease of native coronary artery without angina pectoris (principal); N17.0 Acute kidney failure with tubular necrosis; I47.1 Supraventricular tachycardia; I97.190 Other postprocedural cardiac functional disturbances following cardiac surgery; I10 Essential (primary) hypertension; I48.91 Unspecified atrial fibrillation; Z20.822 Contact with and (suspected) exposure to COVID-19; I70.0 Atherosclerosis of aorta; M16.12 Unilateral primary osteoarthritis, left hip; F41.9 Anxiety disorder, unspecified; N40.0 Benign prostatic hyperplasia without lower urinary tract symptoms; I71.4 Abdominal aortic aneurysm, without rupture; R00.1 Bradycardia, unspecified; R94.39 Abnormal result of other cardiovascular function study; R50.9 Fever, unspecified; Z86.16 Personal history of COVID-19; Z88.0 Allergy status to penicillin; Z79.82 Long term (current) use of aspirin
CPT/HCPCS: 0232T; 93306; 93312; 93325; 93454; 93567; 36415; 36600; 71045; 71046; 75625; 76937; 80048; 80053; 81003; 82330; 82435; 82803; 82947; 82948; 83036; 83735; 84100; 84132; 84295; 85007; 85018; 85025; 85347; 85384; 85610; 85730; 86885; 86900; 86901; 86920; 87081; 87635; 93005; 93880; 93971; 94002; 94010; 94640; 94667; 94668; 94760; 97110; 97116; 97161; 97162; 97530; 99152; 99153; A4618; A4620; A6258; A6402; A6446; A6449; A7000; A7048; C1713; C1751; C1760; C1769; C9113; G0378; J0360; J0461; J0690; J1644; J1815; J1940; J2001; J2060; J2150; J2250; J2440; J2704; J2930; J3010; J3370; J3475; J3480; J3490; J7030; J7040; J7050; J7060; J7120; P9045; P9047; Q0163; Q9967

== ENCOUNTER 2021-08-22 05:29 | Inpatient (IN) | payer MEDICARE ==
[2021-08-15 15:10] LABS: BASOPHILS # (AUTO) 0.1 X10'3 (0-0.2); BASOPHILS % (AUTO) 0.8 % (0-1); EOSINOPHILS # (AUTO) 0.4 X10'3 (0-0.9); EOSINOPHILS % (AUTO) 4.8 % (0-6); LYMPHOCYTES # (AUTO) 1.5 X10'3 (1.1-4.8); LYMPHOCYTES % (AUTO) 17.3 % (21-51); MEAN CORPUSCULAR HGB CONC 33.1 g/dL (33.0-36.5); MEAN CORPUSCULAR VOLUME 93.6 FL (78-98); MEAN PLATELET VOLUME 8.2 FL (7.4-10.4); MONOCYTES # (AUTO) 1.4 X10'3 (0-0.9); MONOCYTES % (AUTO) 16.7 % (2-12); NEUTROPHILS # (AUTO) 5.1 X10'3 (1.8-7.7); NEUTROPHILS % (AUTO) 60.4 % (42-75); PRE OP HEMATOCRIT 41.7 % (42.0-52.0); PRE OP HEMOGLOBIN 13.8 g/dL (14.0-17.9); PRE OP PLATELET COUNT 245 X10'3 (140-440); RED BLOOD COUNT 4.46 X10'6 (4.70-6.10); RED CELL DISTRIBUTION WIDTH 14.6 % (11.5-14.5)
[2021-08-15 15:38] LABS: ALBUMIN 3.2 G/DL (3.4-5.0); ALKALINE PHOSPHATASE 92 IU/L (46-116); BLOOD UREA NITROGEN 26 MG/DL (7-18); BUN/CREATININE RATIO 18.4 (5.4-32.0); CALCIUM 8.8 MG/DL (8.5-10.1); CHLORIDE 110 MMOL/L (99-107); CREATININE 1.41 MG/DL (0.60-1.10); PRE OP ALT 23 U/L (30-65); PRE OP ANION GAP 7 (8-16); PRE OP AST 24 U/L (10-37); PRE OP BILIRUB, TOTAL 0.5 MG/DL (0.0-1.0); PRE OP GLUCOSE 75 MG/DL (70-104); PRE OP POTASSIUM 4.6 MMOL/L (3.4-5.1); PRE OP SODIUM 144 MMOL/L (135-145); TOTAL CARBON DIOXIDE 27.2 MMOL/L (24-32); TOTAL PROTEIN 6.4 G/DL (6.4-8.2); eGFR 48 ML/MIN
[2021-08-15 15:55] LABS: PLATELET ESTIMATE NORMAL; TOTAL CELLS COUNTED 100
[~2021-08-22] VITALS: Ht 175.3 cm; Wt 62.7 kg
[2021-08-22] VITALS (33 sets, daily range): BP systolic 102–176; BP diastolic 56–108
[~2021-08-22 05:29] MED LIST changes: +ASPI-1265 PO; +ATOR10TA87 PO; -LIDOcaine 2% (20 mg/ml) 5ml cardiac syringe ONE; -MAGNESIUM SULFATE 4 MEQ/ML (5gm/10ml) injection ONE; +MULT-1085 PO; -NORepinephrine 1 mg/ml inj IV ONE; -albumin (human) 25% 100 ML IV solution IV ONE; -aminocaproic acid 250 MG/1 ML inj. ONE; -heparin 10,000 units/1 ML INJ ONE; -methylPREDNISolone sod succ 1000mg vial ONE; -potassium Cl 2 mEq/ml inj IV ONE; -sodium bicarbonate (8.4%) 1 mEq/ml syringe ONE
[2021-08-22] MEDS: potassium cl 20mEq in 1/2 NS 1,000 ML IV SCH ×3 (06:20→22:20)
[2021-08-22] MEDS ORDERED: bisacodyl 10mg suppository rectal RC PRN (06:20)
[2021-08-22] MEDS ORDERED: magnesium hydroxide 30ml (MOM) UD suspension PO PRN (06:20)
[2021-08-22] MEDS ORDERED: HYDROmorphone 1 mg/ml syringe IV PRN (06:20)
[2021-08-22] MEDS ORDERED: HYDROmorphone inj. 0.5 MG/0.5 ML DISP.SYRIN IV PRN (06:20)
[2021-08-22] MEDS ORDERED: acetaminophen 325mg tablet PO PRN (06:20)
[2021-08-22] MEDS ORDERED: ondansetron/PF 4mg/2ml inj IV PRN ×2 (06:20→08:05)
[2021-08-22] MEDS ORDERED: diphenhydrAMINE 25mg capsule PO PRN ×2 (06:20)
[2021-08-22] MEDS ORDERED: HYDROcodone/acetaminophen 10/325mg tab PO PRN ×2 (06:20)
[2021-08-22] MEDS ORDERED: ketorolac trometh. 30mg/ml inj. ONE (06:47)
[2021-08-22] MEDS ORDERED: cloNIDine hcl/PF 100mcg/ml inj ONE (06:48)
[2021-08-22] MEDS ORDERED: epiNEPHrine 1 mg/ml inj ONE (06:48)
[2021-08-22] MEDS ORDERED: vancomycin 1,000mg inj ONE (06:48)
[2021-08-22] MEDS ORDERED: ROPIVAcaine 0.5% (5mg/ml) 30ml vial ONE (06:48)
[2021-08-22] MEDS ORDERED: FENTANYL CITRATE/PF 50 MCG/1 ML VIAL ONE ×3 (07:19→07:47)
[2021-08-22] MEDS ORDERED: midazolam 1 mg/ML 2ml injection ONE (07:19)
[2021-08-22] MEDS: ascorbic acid 500mg tablet PO SCH ×2 (08:00→20:22)
[2021-08-22] MEDS: gabapentin 300mg capsule PO SCH ×3 (08:00→20:22)
[2021-08-22] MEDS: multivitamins, therapeutics tablet PO SCH (08:00)
[2021-08-22] MEDS ORDERED: HYDROmorphone/PF 0.2 MG/ML SYRINGE IV PRN ×2 (08:05)
[2021-08-22] MEDS ORDERED: ringers solution, lacted 1,000 ML IV SCH (08:05)
[2021-08-22] MEDS ORDERED: morphine 2 MG/ML inj. syringe IV PRN (08:05)
[2021-08-22] MEDS ORDERED: propofol inj 20 ML IV ONE (08:15)
[2021-08-22] MEDS ORDERED: LIDOcaine 1%/PF 5ML 10 MG/ML VIAL ONE (08:15)
[2021-08-22] MEDS: aspirin 325mg tablet PO SCH (08:30)
--- NOTE | 2021-08-22 08:30 | NUR ---
Received from OR via BED , accompanied by Anesthesiologist KRYSTAL and report given by Anesthesiolgist. PATIENT ON ROOM AIR, VSS, 18 GAUGE RIGHT WRIST, DRESSING ON LEFT HIP WITH AIDAN VAC ATTACHED CDI, POSITIVE PULSES WARM DRY AND PINK, SCD ON RIGHT LEG.
--- NOTE | 2021-08-22 08:30 | NUR ---
Received from OR via BED , accompanied by Anesthesiologist KRYSTAL and report given by Anesthesiolgist. PATIENT ON ROOM AIR. VSS. DRESSING ON OEFT HIP WITH AIDAN VAC ATTAACHED CDI. SCD ON RIGHT LEF. POSITIVE PULSES PINK WARM AND DRY Addendum: 08/22/21 at 0853 by Jennie Fitzpatrick RN Amended: Links added.
--- NOTE | 2021-08-22 10:30 | NUR ---
Patient in room JESSIE 358. I have received report from RYAN Schneider and had the opportunity to ask questions and assume patient care.
--- NOTE | 2021-08-22 10:50 | NUR ---
PATIENT MEETS DISCHARGE CRITERIA. NO PAIN. VSS. LR 100 ML/HR. BAG X 1 WENT WITH PATIENT. CALLED REPORT TO SURGICAL NURSE RICARDO. RICARDO AT BEDSIDE IN THE ROOM. BED LOW AND LOCKED.CALL LIGHT WITH PATIENT. Addendum: 08/22/21 at 1131 by Jennie Fitzpatrick RN Amended: Links added.
[2021-08-22] MEDS ORDERED: tranexamic acid inj. 600 MG in normal saline 100ml IV soln 94 ML IV ONE (12:00)
--- NOTE | 2021-08-22 12:38 | NUR ---
CALLED PHYSICAL THERAPY TO NOTIFY THEM OF NEW POST OPT PT, PHYSICAL THERAPY SAID THAT THEY ARE UNABLE TO SEE POST OPT DAY ZERO PATIENTS AT THIS TIME, CONTINUE TO MONITOR PT
[2021-08-22] MEDS: ceFAZolin/D5W- 1GM premix 50 ML IV SCH (15:28)
--- NOTE | 2021-08-22 16:36 | NUR ---
ambulated pt to bathroom and back to bed w/fww 2 person stand by assist, pt became nauseated but was able to make it to bathroom with a rest period, making it about 20 ft total of ambulation
--- NOTE | 2021-08-22 17:04 | NUR ---
nehmeias dressing was flashing green and orange, reinforced dressing seal w/more tegaderm and reset nehemias, now nehemias glows green only at this time, continue to monitor pt and dressing site
--- NOTE | 2021-08-22 17:53 | NUR ---
Student documentation: I have reviewed and agree with all interventions, assessments performed and documented by Lori, chief nursing executive.
--- NOTE | 2021-08-22 18:25 | NUR ---
Problems reprioritized. Patient report given, questions answered & plan of care reviewed with RYAN Taylor.
--- NOTE | 2021-08-22 18:30 | NUR ---
Patient in room JESSIE 358. I have received report from PRADEEP DAVIS and had the opportunity to ask questions and assume patient care.
[2021-08-22] MEDS ORDERED: VANCOMYCIN 1GM/200ML IVPB 200 ML IV SCH (20:00)
--- NOTE | 2021-08-22 20:37 | NUR ---
Student Medication Administration: For this medication-pass time frame, all medication were reviewed, dispensed, administered and documented per hospital policy by Lorna [facility].
[2021-08-22] MEDS ORDERED: sennosides 8.6mg tablet PO SCH (21:00)
--- NOTE | 2021-08-22 23:17 | NUR ---
Student documentation: I have reviewed interventions, assessments performed and documented by Lorna [facility]ilio [facility].
[2021-08-23] VITALS: BP 129/76
[2021-08-23] MEDS: ceFAZolin/D5W- 1GM premix 50 ML IV SCH (00:43)
[2021-08-23] MEDS ORDERED: ringers solution, lacted 1,000 ML IV SCH (05:00)
[2021-08-23] MEDS ORDERED: celeCOXIB 100mg capsule PO ONE (05:30)
[2021-08-23] MEDS ORDERED: acetaminophen 325mg tablet PO ONE (05:30)
[2021-08-23] MEDS ORDERED: tranexamic acid inj. 1,000 MG in 0.7% saline 100 ML PMX IV ONE (05:30)
[2021-08-23] MEDS ORDERED: oxyCODONE SR 10mg (sust. release) tab -2 tabs (20mg) PO ONE (05:30)
[2021-08-23] MEDS ORDERED: metoclopramide 5 mg/ml inj IV ONE (05:30)
[2021-08-23] MEDS ORDERED: gabapentin 300mg capsule PO ONE (05:30)
[2021-08-23] MEDS ORDERED: cefazolin/dext.iso 2gm/50ml IV ONE (05:30)
[2021-08-23] MEDS ORDERED: famotidine 20mg tablet PO ONE (05:30)
[2021-08-23] MEDS ORDERED: VANCOMYCIN INJ 1000 MG in NORMAL SALINE 200ml IV.SOLN IV ONE (05:30)
[2021-08-23] MEDS: potassium cl 20mEq in 1/2 NS 1,000 ML IV SCH (05:56)
--- NOTE | 2021-08-23 06:15 | NUR ---
Patient in room JESSIE 358. I have received report from RYAN Berry and had the opportunity to ask questions and assume patient care.
--- NOTE | 2021-08-23 06:30 | NUR ---
Patient in room JESSIE 358. I have received report from Jen Li RN and had the opportunity to ask questions and assume patient care.
--- NOTE | 2021-08-23 06:30 | NUR ---
Problems reprioritized. Patient report given, questions answered & plan of care reviewed with AMBER DAVIS.
[2021-08-23 06:44] LABS: BASOPHILS % (AUTO) 0.2 % (0-1); EOSINOPHILS # (AUTO) 0.4 X10'3 (0-0.9); EOSINOPHILS % (AUTO) 3.5 % (0-6); HEMATOCRIT 40.2 % (42.0-52.0); HEMOGLOBIN 13.4 g/dl (14.0-17.9); LYMPHOCYTES % (AUTO) 9.1 % (21-51); MEAN CORPUSCULAR HEMOGLOBIN 31.5 PG (27.0-31.0); MEAN CORPUSCULAR HGB CONC 33.4 g/dL (33.0-36.5); MEAN CORPUSCULAR VOLUME 94.3 FL (78-98); MEAN PLATELET VOLUME 8.4 FL (7.4-10.4); MONOCYTES # (AUTO) 1.6 X10'3 (0-0.9); MONOCYTES % (AUTO) 15.6 % (2-12); NEUTROPHILS # (AUTO) 7.5 X10'3 (1.8-7.7); NEUTROPHILS % (AUTO) 71.6 % (42-75); PLATELET COUNT 183 X10'3 (140-440); RED BLOOD COUNT 4.26 X10'6 (4.70-6.10); RED CELL DISTRIBUTION WIDTH 14.3 % (11.5-14.5); WHITE BLOOD COUNT 10.5 X10'3 (4.5-11.0)
[2021-08-23 06:52] LABS: ANION GAP 4 (8-16); CHLORIDE 107 MMOL/L (99-107); POTASSIUM 4.5 MMOL/L (3.5-5.1); SODIUM 136 MMOL/L (135-145); TOTAL CARBON DIOXIDE 25.5 MMOL/L (24-32)
[2021-08-23 07:00] VITALS: BP 158/80
[2021-08-23 07:05] LABS: PLATELET ESTIMATE NORMAL; TOTAL CELLS COUNTED 100; TOXIC GRANULATION 1+
[2021-08-23 07:06] LABS: POIKILOCYTOSIS FEW
[2021-08-23] MEDS: multivitamins, therapeutics tablet PO SCH (08:00)
[2021-08-23] MEDS: ascorbic acid 500mg tablet PO SCH (08:00)
[2021-08-23] MEDS ORDERED: atorvastatin 10mg tablet PO SCH (08:00)
[2021-08-23] MEDS: gabapentin 300mg capsule PO SCH (08:00)
[2021-08-23] MEDS: aspirin 325mg tablet PO SCH (08:30)
--- NOTE | 2021-08-23 09:35 | NUR ---
Joint Surgery Consult: Pt s/p L hip surgery this admit. Pt sleeping w/ emesis bag during RD visit this AM; written high protein ed w/ RD contact information placed at bedside. Addendum: 08/23/21 at [address] Amended: Links added.
[2021-08-23 11:00] VITALS: BP 109/83
[2021-08-23] MEDS ORDERED: celeCOXIB 100mg capsule PO SCH (20:00)
== END 2021-08-23 14:30 | disposition home or self-care (01) | DRG 470 ==
LOC: PAS 05:29 → PAS IN 06:22 → SUR 3N 10:55
PROVIDERS: ADMIT Orthopaedic Surgery; ATTEND Orthopaedic Surgery
PROC: 0SRB06Z Replacement of Left Hip Joint with Oxidized Zirconium on Polyethylene Synthetic Substitute, Open Approach (ICD-10-PCS; principal; 2021-08-22 07:12)
DX: M16.12 Unilateral primary osteoarthritis, left hip (principal); Z79.82 Long term (current) use of aspirin; Z79.899 Other long term (current) drug therapy
CPT/HCPCS: 36415; 71045; 72170; 80051; 80053; 82948; 85007; 85025; 86885; 86900; 86901; 87081; 97161; 97530; A7000; C1776; G0378; J0171; J0690; J0735; J1885; J2250; J2405; J2704; J2765; J2795; J3010; J3370; J3480; J3490; J7120; U0003; U0005